=== PATIENT | female | born 1990 | race Caucasian/White ===

== ENCOUNTER 2019-07-04 15:00 | Inpatient (IN) | payer BC ==
--- NOTE | 2019-07-04 16:41 | HP ---
General Information - Reason for Visit SROM around 1:30 today, + FM, -VB - General Information Maternal Age: 28 Grav: 2 Para: 0 SAB: 1 IEA: 0 Estimated Due Date: 06/29/19 Determined By: Early Ultrasound Gestational Age in Weeks/Days: 40w5d Maternal Blood Type and Rh: A Positive - Results this Serology/RPR Result: Non-Reactive Rubella Result: Immune HBsAg Result: Negative HIV Result: Negative GBS Culture Result: Negative Past Medical History Pertinent Past Medical History: Non-Contributory Pertinent Past Surgical History: See Records - Tonsils and adenoids 1998 Pertinent Family History: See Records - MGM, MGF, F, PGF, uncles: HTN ; PGF: stroke, CA; p. uncle: type I DM - Antepartal Records Antepartal Records: Reviewed, Complicated by: - marginal previa ( resolved), LSIL Review of Systems Constitutional: Comfortable CV Complaint: No Respiratory: Shortness of Breath: No Gastrointestinal: No Nausea/Vomiting, Normal Bowel Movement Genitourinary: Leaking Fluid, No Dysuria, No Bleeding Musculoskeletal: Contractions Neurological: No Headache, No Visual Changes Movement: Normal Exam Allergies/Adverse Reactions: Allergies No Known Allergies Allergy (Verified 04/15/16 17:03) T:98.4, R:17, BP: 118/58, P:98 Lab Values - Entire Visit: Laboratory Tests 07/04/19 15:50 Vag Amniotic Fld Detect Positive - Measurements Height: 5 ft 4 in Weight: 184 lb Weight in lbs: 184.091460 Body Mass Index (BMI): 31.6 Pre- Weight: 144 lb Weight Gained This : 40 lbs and 0 ozs - Exam Breast: Breast Exam Deferred CVA: No CVA Tenderness Extremities: No Edema Heart: Normal Rhythm/Heart Sounds HEENT: No Significant Findings Lungs: Clear Bilaterally Rectal: Rectal Exam Deferred Reflexes: DTR 2+ Thyroid: No Thyromegaly - Abdominal Exam Abdomen Exam: Fundal Height Consistent with Dates - Ultrasound/Biophysical Profile Ultrasound Status: Not Done Targeted Exam Findings Estimated Weight: 8lbs Cervical Exam: 2cm, 3cm Effacement: 90% Station: -1 Presenting Part: Vertex Membrane Status: Leaking Amniotic Fluid Evaluation: Positive ROM Plus EFM Findings - External Monitor Findings Baseline Heart Rate: 135 External Monitor Findings: Accelerations Present, No Pattern of Variable or Late Decelerations, Variability Moderate, Baseline Stable Contractions: Irregular, Mild, Moderate, 45-90 Seconds Contraction Frequency: 4-6 Assessment/Plan - Assessment 28 y.o. , 40w5d EGA, early labor, SROM, Cat I NST - Plan Plan: Induction Plan Comment: Con't to monitor and encourage ambulation, reevaluate in 2 hrs, if no progress, start cervidil - Date/Time of Admission Date of Admission: 07/04/19 Time of Admission: 16:30
[2019-07-04] MEDS ORDERED: Dinoprostone* 10 MG VAG.SUPP VAGINAL ONE (18:00)
[2019-07-04] MEDS ORDERED: Promethazine INJ(RESTRICTED)* 25 MG/ML 1 ML VIAL IM PRN (19:01)
[2019-07-04] MEDS ORDERED: Nalbuphine* 10 MG/ML 1 ML VIAL IM PRN (19:01)
[2019-07-04 19:22] LABS: Urine Benzodiazepine Screen None Detected (None Detect); Urine Opiates Screen None Detected (None Detect)
--- NOTE | 2019-07-05 04:00 | PN ---
Progress Note - Progress Note Date of Service: 07/05/19 SOAP: Subjective: Pt reports ctx became strong around 10:30 and pt progressed and is now feeling urge to push. Objective: BP:134/74, P:80, R:18, T:99.2, FHR:125bpm cervix: fully dilated 0 station Assessment: 28 y.o. , 40w6d EGA pushing effectively Plan: 1) Position changes 2) Coached pushing 3) Anticipate vaginal delivery
[2019-07-05] MEDS ORDERED: Lidocaine 2% VISCOUS* 15 ML UDC ONE (04:47)
[2019-07-05] MEDS ORDERED: Acetaminophen TAB* 325 MG PO PRN (05:54)
[2019-07-05] MEDS ORDERED: OXYTOCIN* 10 UNITS/ML 1 ML VIAL IM ONE (05:54)
[2019-07-05] MEDS ORDERED: Witch Hazel PAD* JAR TOPICAL PRN (05:54)
[2019-07-05] MEDS ORDERED: Ibuprofen TAB* 600 MG PO PRN (05:54)
[2019-07-05] MEDS ORDERED: Glycerin ADULT SUPP PR PRN (05:54)
[2019-07-05] MEDS ORDERED: Lidocaine 2% VISCOUS* 15 ML UDC SWISH SPIT ONE (05:55)
--- NOTE | 2019-07-05 05:59 | PROCNOTE ---
[facility] OB: Delivery Note - Delivery A Date of : 07/05/19 Time of : 05:17 Sex: Female Score 1 Minute: 9 Score 5 Minutes: 9 Gestational Age in Weeks and Days at Delivery: 40 Weeks and 6 Days Delivery Method: Spontaneous Vaginal Labor: Spontaneous Amniotic Fluid: Meconium Estimated Blood Loss: 200 Anesthesia/Analgesia: None Delivered By: Mary Kern - Nursery Level of Nursery: Regular/Bedside - Perineum Perineal Injury: Perineal Laceration, 1st Degree Perineal Injury Comment: left and right labial lacerations Perineal Repair: By Delivering Practioner
[2019-07-05] MEDS ORDERED: Lactated Ringers 1000 ML Bag* 1,000 ML IV SCH (06:00)
[2019-07-05] MEDS ORDERED: Lidocaine 1% INJ* 10 MG/ML 30 ML SDV ONE (06:05)
[2019-07-05] MEDS: Dibucaine 1% 28.35 GM TUBE PR PRN ×2 (08:26→22:20)
[2019-07-05] MEDS ORDERED: Simethicone TAB* 80 MG TAB.CHEW PO SCH (08:30)
[2019-07-05] MEDS: Docusate CAP* 100 MG PO SCH ×3 (11:14→22:20)
[2019-07-06 08:10] VITALS: BP 112/69
[2019-07-06 08:21] LABS: ABS Lymphocytes 2.3 10^3/ul (1.0-4.8); ABS Monocytes 0.8 10^3/ul (0-0.8); ABS Neutrophils 8.8 10^3/ul (1.5-7.7); Eosinophil % 0.2 %; Hematocrit 37 % (35-47); Hemoglobin 12.2 g/dL (12.0-16.0); Lymphocyte % 18.8 %; Mean Corpuscular HGB Conc 33 g/dL (31-36); Mean Corpuscular Hemoglobin 29 pg (27-31); Mean Corpuscular Volume 86 fL (80-97); Mean Platelet Volume 10.6 fL (7.4-10.4); Platelet Count 109 10^3/uL (150-450); Red Blood Count 4.24 10^6 /uL (3.70-4.87); Red Cell Distribution Width 15 % (10-15)
[2019-07-06] MEDS: Docusate CAP* 100 MG PO SCH (08:40)
[2019-07-06] MEDS: Dibucaine 1% 28.35 GM TUBE PR PRN (08:40)
[2019-07-06] MEDS ORDERED: Ferrous Gluconate TAB* 324 MG TAB PO SCH (09:00)
== END 2019-07-06 11:40 | disposition home or self-care (01) | DRG 560 ==
LOC: MCHOBOUT 15:00 → MCHOB 16:39
PROVIDERS: ADMIT Midwife; ATTEND Midwife
PROC: 10E0XZZ Delivery of Products of Conception, External Approach (ICD-10-PCS; principal; 2019-07-05)
PROC: 4A1HXCZ Monitoring of Products of Conception, Cardiac Rate, External Approach (ICD-10-PCS; 2019-07-05)
PROC: 0HQ9XZZ Repair Perineum Skin, External Approach (ICD-10-PCS; 2019-07-05)
PROC: 0UQMXZZ Repair Vulva, External Approach (ICD-10-PCS; 2019-07-05)
DX: O48.0 Post-term pregnancy (principal); Z37.0 Single live birth; Z3A.40 40 weeks gestation of pregnancy; O77.0 Labor and delivery complicated by meconium in amniotic fluid; O70.0 First degree perineal laceration during delivery
CPT/HCPCS: 36415; 80307; 84112; 85025; A9270-GY; J2300; J2550; J2590

== ENCOUNTER 2019-12-27 09:15 | Emergency (ER) | payer BC ==
[2019-12-27 10:34] VITALS: BP 112/64
--- NOTE | 2019-12-27 10:58 | UC ---
Ear Complaint HPI - HPI Summary HPI Summary: 29 yo with 2 week hx of sinus congestion, with left ear pain and fever for the past 2 days. Has frontal headache and fatigue. her 5 mo daughter. - History of Current Complaint Chief Complaint: UCGeneralIllness Stated Complaint: COUGH,LT EAR COMPLAINT Time Seen by Provider: 12/27/19 10:50 Hx Obtained From: Patient Hx Last Menstrual Period: unknow-BCP Onset/Duration: Lasting Days Severity Initially: Mild Severity Currently: Moderate Pain Intensity: 3 Alleviating Factors: OTC Meds Associated Signs/Symptoms: Positive: Hearing Loss - chronic, URI Symptoms - Allergies/Home Medications Allergies/Adverse Reactions: Allergies Allergy/AdvReac Type Severity Reaction Status Date / Time No Known Allergies Allergy Verified 12/27/19 10:35 Home Medications: Home Medications Bcp 12/27/19 [History] PMH/Surg Hx/FS Hx/Imm Hx Previously Healthy: Yes - Surgical History Surgical History: Yes Surgery Procedure, Year, and Place: Tonsillectomy. - Family History Known Family History: Positive: Non-Contributory - Social History Occupation: Employed Full-time Alcohol Use: None Alcohol Amount: none since Substance Use Type: None Smoking Status (MU): Never Smoked Tobacco Have You Smoked in the Last Year: No - Immunization History Most Recent Influenza Vaccination: 2018 Most Recent Pneumonia Vaccination: na Review of Systems All Other Systems Reviewed And Are Negative: Yes Constitutional: Positive: Fever, Fatigue Skin: Positive: Negative Eyes: Positive: Negative ENT: Positive: Sore Throat, Ear Ache, Nasal Discharge, Sinus Congestion, Sinus Pain/Tenderness Respiratory: Positive: Negative Cardiovascular: Positive: Negative Gastrointestinal: Positive: Negative Genitourinary: Positive: Negative Motor: Positive: Negative Neurovascular: Positive: Negative Musculoskeletal: Positive: Negative Neurological: Positive: Headache Psychological: Positive: Negative Is Patient Immunocompromised?: No Physical Exam Triage Information Reviewed: Yes Appearance: Ill-Appearing, Pain Distress - mild Vital Signs: Initial Vital Signs Temp 99 F 12/27/19 10:30 Pulse 92 12/27/19 10:30 Resp 14 12/27/19 10:30 BP 112/64 12/27/19 10:30 Pulse Ox 100 12/27/19 10:30 Eyes: Positive: Conjunctiva Clear ENT: Positive: Pharyngeal erythema, TM dull - left TM retracted; bilateral serous fluid, Sinus tenderness Neck: Positive: Supple, Nontender, No Lymphadenopathy Respiratory: Positive: Lungs clear, Normal breath sounds Cardiovascular: Positive: RRR, No Murmur Ear Complaint Course/Dx - Course Course Of Treatment: amoxicillin for treatment of sinusitis - Differential Dx/Diagnosis Differential Diagnosis/HQI/PQRI: Otitis Externa, Otitis Media, Other - sinusitis Provider Diagnosis: Sinusitis Discharge ED - Sign-Out/Discharge Documenting (check all that apply): Patient Departure All imaging exams completed and their final reports reviewed: No Studies - Discharge Plan Condition: Stable Disposition: HOME Prescriptions: Amoxicillin PO (*) [Amoxicillin 875 MG (*)] 875 mg PO BID #20 tab Patient Education Materials: Sinusitis (ED) Referrals: Karena Quijano MD [Primary Care Provider] - Additional Instructions: Take full course of amoxicillin for treatment of sinusitis. This is safe to take when you are . Continue ibuprofen for relief of pain. Use of nasal saline can help to relieve sinus congestion and pressure. - Billing Disposition and Condition Condition: STABLE Disposition: Home
== END 2019-12-27 11:06 | disposition home or self-care (01) ==
LOC: UCCORT 09:15
DX: J32.9 Chronic sinusitis, unspecified (principal); R53.83 Other fatigue
CPT/HCPCS: 99212; G0463